=== PATIENT | male | born 1940 | race Caucasian/White ===

== ENCOUNTER → 2016-06-01 | Outpatient (CLI) | payer MEDICARE, OTHER ==
[~2016-06-01] MED LIST: /WARF5TA OR; ACET65TA OR; ARIC10TA PO; ASPI325T OR; ASPI81TA11 PO; DICL250C70 PO; LISI10TA4 OR; LISI2.5T3 OR; METO-346 PO; NAME28CA PO; PERC5TAB8 OR; TOPR25TA OR; TYLE167L PO; VICO5TAB16 PO; ZOCOR PO; metoprolol OR; namenda OR
--- NOTE | 2016-06-01 15:36 | REP ---
Shunt series: Three views. Comparison radiographs are from January 14, 2015. History: Presence of cerebrospinal fluid drainage device. Findings: Three views of the left frontal calvarium are obtained. These demonstrate a left-sided ventriculoperitoneal shunt apparatus in place. The control dial for the device is visible on lateral radiographs. No discontinuity is seen in the visualized shunt tubing. Signed by Shreyas Guerrero MD 06/01/2016 07:18 P
== END ==
LOC: M RAD 14:37
PROVIDERS: ATTEND Neurological Surgery
DX: Z98.2 Presence of cerebrospinal fluid drainage device (principal)

== ENCOUNTER → 2016-06-16 | Outpatient (CLI) | payer MEDICARE, OTHER ==
--- NOTE | 2016-06-16 10:05 | REP ---
MR BRAIN WITHOUT CONTRAST: HISTORY: Normal pressure hydrocephalus. Areas of increased signal intensity on T2-weighted images are present in the periventricular and subcortical white matter. This represents small vessel ischemic disease. A small focus of increased signal intensity on T2-weighted images is present in the left frontal lobe. This represents encephalomalacia. There is no intraparenchymal hemorrhage, infarct, mass, or midline shift. The ventricular system and cortical sulci are dilated consistent with moderate volume loss. There is no extracerebral collection. A shunt is present in the anterior horn of the right lateral ventricle. The sinuses are clear. IMPRESSION: 1. Small vessel ischemic disease. 2. Moderate volume loss. Signed by Jose Escobar MD 06/16/2016 10:07 A
== END ==
LOC: M RAD 07:16
PROVIDERS: ATTEND Neurological Surgery
DX: G91.2 (Idiopathic) normal pressure hydrocephalus (principal); I73.9 Peripheral vascular disease, unspecified

== ENCOUNTER → 2016-07-06 | Outpatient (CLI) | payer MEDICARE, OTHER ==
--- NOTE | 2016-07-06 17:58 | REP ---
SHUNT SERIES, FIVE VIEWS: HISTORY: [employer] shunt [employer] shunt is present with its tip in the region of the anterior horns of the lateral ventricles. The distal shunt is present in the mid anterior pelvis. There is no shunt discontinuity. IMPRESSION: There is no shunt discontinuity. Signed by Jose Escobar MD 07/07/2016 08:52 A
== END ==
LOC: M RAD 15:49
PROVIDERS: ATTEND Neurological Surgery
DX: Z98.2 Presence of cerebrospinal fluid drainage device (principal)

== ENCOUNTER → 2016-07-09 | Outpatient (CLI) | payer MEDICARE, OTHER ==
--- NOTE | 2016-07-09 09:24 | REP ---
CT HEAD WITHOUT CONTRAST: HISTORY: CSF drainage. COMPARISON: MR 06/16/2016 Areas of decreased attenuation are present in the periventricular white matter. This represents small vessel ischemic disease. There is no intraparenchymal hemorrhage, mass or midline shift. There is dilatation of the ventricular system unchanged compared to the previous study. The cortical sulci are dilated consistent with moderate volume loss. There is no extracerebral collection. A shunt is present in the anterior horn of the right lateral ventricle. The visualized sinuses are clear. IMPRESSION: 1. Small vessel ischemic disease. 2. Moderate volume loss. 3. A shunt is present in the right lateral ventricle. There is no change in size of the ventricles compared to the previous study. Signed by Jose Escobar MD 07/09/2016 11:03 A
== END ==
LOC: M RAD 07:59
PROVIDERS: ATTEND Neurological Surgery
DX: Z98.2 Presence of cerebrospinal fluid drainage device (principal)

== ENCOUNTER → 2016-07-28 | Outpatient (CLI) | payer MEDICARE, OTHER ==
--- NOTE | 2016-07-28 18:46 | REP ---
Shunt series: Limited study single view: History: Idiopathic normal-pressure hydrocephalus. Findings: Lateral view of the ventriculostomy catheter and associated shunt tubing demonstrates the shunt control device. This appears to be unchanged in position from 07/06/2016. No discontinuity is seen. Signed by Shreyas Guerrero MD 07/29/2016 08:06 A
== END ==
LOC: M RAD 15:10
PROVIDERS: ATTEND Neurological Surgery
DX: G91.2 (Idiopathic) normal pressure hydrocephalus (principal)

== ENCOUNTER → 2016-08-26 | Outpatient (CLI) | payer MEDICARE, OTHER ==
--- NOTE | 2016-08-26 12:15 | REP ---
CT HEAD WITHOUT CONTRAST: HISTORY: Normal pressure hydrocephalus. COMPARISON: 07/09/2016. Areas of decreased attenuation are present in the periventricular white matter. This represents small vessel ischemic disease. There is no intraparenchymal hemorrhage, mass or midline shift. There is dilatation of the ventricular system unchanged compared to the previous study. A shunt is present in the anterior horn of the right lateral ventricle. The cortical sulci are dilated consistent with moderate volume loss. There is no extracerebral collection. The visualized sinuses are clear. IMPRESSION: 1. Small vessel ischemic disease. 2. Moderate volume loss. 3. A shunt is present in the right lateral ventricle. There is no change in size of the ventricles compared to the previous study. Signed by Jose Escobar MD 08/26/2016 12:27 P
== END ==
LOC: M RAD 11:16
PROVIDERS: ATTEND Neurological Surgery
DX: G91.2 (Idiopathic) normal pressure hydrocephalus (principal); I73.9 Peripheral vascular disease, unspecified; G93.9 Disorder of brain, unspecified; Z98.2 Presence of cerebrospinal fluid drainage device

== ENCOUNTER → 2017-01-12 | Outpatient (CLI) | payer MEDICARE, OTHER ==
[~2017-01-12] MED LIST changes: -ARIC10TA PO; +ARIC1TAB2 PO; +ASPI-101 PO; -ASPI81TA11 PO
--- NOTE | 2017-01-12 17:49 | REP ---
[employer] SHUNT SERIES: Comparison made with prior study of 07/28/2016. Lateral view of the skull demonstrates [employer]INICIAN shunt at the cephalic end unchanged in appearance compared to the prior exam. The cephalic tip is just to the right of midline. This is seen on the AP view of the skull. AP view of the chest demonstrates the catheter extending inferiorly across the left hemithorax, again unchanged since prior study. Two views of the abdomen and pelvis demonstrate the catheter entering the left upper quadrant of the abdomen extending into the left lower quadrant and then coursing into the right midabdomen. No kinking or discontinuity is seen. Signed by Grover Velasquez MD 01/13/2017 04:40 P
== END ==
LOC: M RAD 14:30
PROVIDERS: ATTEND Neurological Surgery
DX: T85.09XA Other mechanical complication of ventricular intracranial (communicating) shunt, initial encounter (principal); Y83.1 Surgical operation with implant of artificial internal device as the cause of abnormal reaction of the patient, or of later complication, without mention of misadventure at the time of the procedure

== ENCOUNTER → 2017-01-27 | Outpatient (CLI) | payer MEDICARE, OTHER | LOC: M RAD 11:32 | PROVIDERS: ATTEND Neurological Surgery | DX: Z98.2 Presence of cerebrospinal fluid drainage device (principal) ==

== ENCOUNTER → 2017-02-18 | Outpatient (CLI) | payer MEDICARE, OTHER ==
--- NOTE | 2017-02-18 13:35 | REP ---
Clinical: Evaluate exact position of the shunt. Technique: Axial noncontrast images of the abdomen. Findings: A ventriculoperitoneal shunt is identified in the anterior subcutaneous tissues overlying the left chest and abdominal wall piercing the peritoneal cavity above the level of the umbilicus at the L2-3 level. The catheter coils within the abdomen and is relatively normal in its appearance. Liver, spleen, pancreas, bilateral adrenal glands and left kidney are relatively normal. No right kidney identified. Significant atherosclerotic changes of the aorta and branch vessels including renovascular calcifications are identified. The enteric system demonstrates diffuse diverticulosis without acute diverticulitis and no evidence for bowel obstruction or acute inflammatory process. There is a moderate supraumbilical midline ventral hernia containing fat and nondilated small bowel with a peritoneal defect of approximately 5 cm diameter. No ascites, free air, or adenopathy is appreciated in the visualized abdomen. Lung bases demonstrate chronic interstitial changes. Impression: 1. Ventriculoperitoneal shunt appears to be within normal limits. 2. Moderate midline supraumbilical ventral hernia containing fat and nondilated small bowel. 3. Atherosclerotic changes to the aorta and vasculature. 4. No right kidney identified. Signed by Stephen Elkins MD 02/18/2017 01:27 P
== END ==
LOC: M RAD 13:04
PROVIDERS: ATTEND Neurological Surgery
DX: Z01.89 Encounter for other specified special examinations (principal)

== ENCOUNTER → 2017-04-01 | Outpatient (REF) | payer MEDICARE, OTHER ==
[2017-04-02 11:26] LABS: BASO # 0.1 10^3/uL (0.0-0.2); EOS # 0.2 10^3/uL (0.0-0.50); EOS % 2.6 % (0.0-3.0); HEMOGLOBIN 12.3 g/dl (14.0-18.0); IMMATURE GRANULOCYTE # 0.1 10^3/uL (0-0); IMMATURE GRANULOCYTE % 1.2 % (0-0); LYMPH # 1.2 10^3/uL (1.5-4.5); LYMPH % 20.5 % (24.0-44.0); MEAN CORPUSCULAR HEMOGLOBIN 28.6 pg (27.0-33.0); MEAN CORPUSCULAR HGB CONC 31.5 g/dl (32.0-36.5); MEAN CORPUSCULAR VOLUME 90.7 fl (80.0-96.0); MONO # 0.7 10^3/uL (0.0-0.8); MONO % 11.1 % (0.0-5.0); NEUTROPHILS # 3.7 10^3/uL (1.8-7.7); NEUTROPHILS % 63.6 % (36.0-66.0); PLATELET COUNT, AUTOMATED 308 10^3/uL (150-450); RED CELL DISTRIBUTION WIDTH 13.6 % (11.5-14.5); WHITE BLOOD COUNT 5.9 10^3/uL (4.0-10.0)
[2017-04-02 11:37] LABS: ALBUMIN 3.8 GM/DL (3.2-5.2); ALBUMIN/GLOBULIN RATIO 1.03 (1.00-1.93); ALKALINE PHOSPHATASE 97 U/L (45-117); ALT/SGPT 16 U/L (12-78); ANION GAP 5 MEQ/L (8-16); AST/SGOT 15 U/L (7-37); BILIRUBIN,TOTAL 0.4 MG/DL (0.2-1.0); BLOOD UREA NITROGEN 19 MG/DL (7-18); CALCIUM LEVEL 8.7 MG/DL (8.8-10.2); CARBON DIOXIDE LEVEL 30 MEQ/L (21-32); CHLORIDE LEVEL 107 MEQ/L (98-107); CREATININE FOR GFR 1.29 MG/DL (0.70-1.30); GLOMERULAR FILTRATION RATE 57.3 (>42); GLUCOSE, FASTING 117 MG/DL (83-110); POTASSIUM SERUM 4.8 MEQ/L (3.5-5.1); SODIUM LEVEL 142 MEQ/L (136-145); TOTAL PROTEIN 7.5 GM/DL (6.4-8.2)
== END ==
LOC: M SFHCCLAY 14:00
DX: I10 Essential (primary) hypertension (principal)
CPT/HCPCS: 80053

== ENCOUNTER → 2017-04-05 | Outpatient (CLI) | payer MEDICARE, OTHER | LOC: M PLARAD 08:26 | DX: G30.9 Alzheimer's disease, unspecified (principal) ==

== ENCOUNTER → 2017-08-19 | Outpatient (REF) | payer MEDICARE, OTHER | LOC: M LAB REF 14:27 | DX: C44.319 Basal cell carcinoma of skin of other parts of face (principal) | CPT/HCPCS: 88305 ==

== ENCOUNTER → 2017-11-03 | Outpatient (CLI) | payer MEDICARE, OTHER | LOC: M RAD 10:06 | DX: I67.82 Cerebral ischemia (principal); I62.02 Nontraumatic subacute subdural hemorrhage; Z98.2 Presence of cerebrospinal fluid drainage device | CPT/HCPCS: 75809 ==

== ENCOUNTER 2017-11-30 18:00 | Inpatient (IN) | payer MEDICARE, OTHER ==
[2017-11-30 18:51] LABS: BEDSIDE GLUCOSE 100 MG/DL (83-110)
[2017-11-30 19:08] LABS: BASO % 0.3 % (0.0-1.0); EOS # 0.2 10^3/uL (0.0-0.50); EOS % 1.9 % (0.0-3.0); HEMATOCRIT 36.7 % (42.0-52.0); HEMOGLOBIN 11.6 g/dl (13.5-17.5); IMMATURE GRANULOCYTE % 0.4 % (0-3.0); LYMPH # 1.1 10^3/uL (1.5-4.5); LYMPH % 10.4 % (24.0-44.0); MEAN CORPUSCULAR HEMOGLOBIN 27.4 pg (27.0-33.0); MEAN CORPUSCULAR HGB CONC 31.6 g/dl (32.0-36.5); MEAN CORPUSCULAR VOLUME 86.6 fl (80.0-96.0); MONO % 9.6 % (0.0-5.0); NEUTROPHILS % 77.4 % (36.0-66.0); PLATELET COUNT, AUTOMATED 272 10^3/uL (150-450); RED BLOOD COUNT 4.24 10^6/uL (4.30-6.10); RED CELL DISTRIBUTION WIDTH 14.1 % (11.5-14.5); WHITE BLOOD COUNT 10.3 10^3/uL (4.0-10.0)
[2017-11-30 19:40] LABS: AMMONIA 31 uMOL/L (<32)
[2017-11-30 19:48] LABS: ALBUMIN 3.4 GM/DL (3.2-5.2); ALBUMIN/GLOBULIN RATIO 0.85 (1.00-1.93); ALKALINE PHOSPHATASE 107 U/L (45-117); ALT/SGPT 11 U/L (12-78); ANION GAP 6 MEQ/L (8-16); AST/SGOT 17 U/L (7-37); BILIRUBIN,DIRECT 0.1 MG/DL (0.0-0.2); BILIRUBIN,TOTAL 0.4 MG/DL (0.2-1.0); BLOOD UREA NITROGEN 15 MG/DL (7-18); CALCIUM LEVEL 8.6 MG/DL (8.8-10.2); CARBON DIOXIDE LEVEL 26 MEQ/L (21-32); CHLORIDE LEVEL 108 MEQ/L (98-107); CPK CREATINE PHOSPHOKINASE 80 U/L (39-308); CREATININE FOR GFR 1.13 MG/DL (0.70-1.30); GLOMERULAR FILTRATION RATE > 60.0 (>42); GLUCOSE, FASTING 98 MG/DL (70-100); MB/CK RELATIVE INDEX 1.38 (< OR =4); POTASSIUM SERUM 4.2 MEQ/L (3.5-5.1); SODIUM LEVEL 140 MEQ/L (136-145); TOTAL PROTEIN 7.4 GM/DL (6.4-8.2); TROPONIN I < 0.02 NG/ML (< 0.10)
[2017-11-30 21:24] LABS: KETONE, URINE AUTO RFX NEGATIVE (NEGATIVE); NITRITE, URINE AUTO RFX NEGATIVE (NEGATIVE); RBC, URINE AUTO RFX 13 /HPF (0-3); SPECIFIC GRAVITY UR AUTO RFX 1.017 (1.002-1.035); SQUAM EPITHELIAL CELL UR AURFX 2 /HPF (0-6)
[2017-11-30 21:26] LABS: LEUKOCYTE ESTERASE UR AUTO RFX 3+ (NEGATIVE); WBC, URINE AUTO RFX 103 /HPF (0-3)
[2017-11-30] MEDS: CIPROFLOXACIN 400 MG in APPROPRIATE DILUENT 1 EA IV (21:30)
[2017-11-30] MEDS ORDERED: ACETAMINOPHEN TAB 650MG DOSE (2X325MG) PO (23:00)
[2017-12-01] MEDS: cefTRIAXone SOD 1 GM in D5W MINI-BAG PLUS 50 ML IV (00:36)
[2017-12-01] MEDS: SIMVASTATIN 40 MG TAB PO ×2 (00:37→20:25)
[2017-12-01] MEDS: DONEPEZIL 5 MG TAB PO ×2 (00:37→20:25)
[2017-12-01] MEDS: SERTRALINE 100 MG TAB PO ×2 (00:38→20:25)
[2017-12-01 07:02] LABS: HEMOGLOBIN 11.1 g/dl (13.5-17.5); MEAN CORPUSCULAR HEMOGLOBIN 27.1 pg (27.0-33.0); MEAN CORPUSCULAR HGB CONC 31.7 g/dl (32.0-36.5); MEAN CORPUSCULAR VOLUME 85.4 fl (80.0-96.0); PLATELET COUNT, AUTOMATED 269 10^3/uL (150-450); WHITE BLOOD COUNT 8.3 10^3/uL (4.0-10.0)
[2017-12-01 07:21] LABS: ANION GAP 5 MEQ/L (8-16); BLOOD UREA NITROGEN 12 MG/DL (7-18); CALCIUM LEVEL 8.7 MG/DL (8.8-10.2); CARBON DIOXIDE LEVEL 26 MEQ/L (21-32); CHLORIDE LEVEL 108 MEQ/L (98-107); CREATININE FOR GFR 1.17 MG/DL (0.70-1.30); GLOMERULAR FILTRATION RATE > 60.0 (>42); GLUCOSE, FASTING 104 MG/DL (70-100); POTASSIUM SERUM 4.1 MEQ/L (3.5-5.1); SODIUM LEVEL 139 MEQ/L (136-145)
[2017-12-01] MEDS: MEMANTINE 5MG TABLET (NAMENDA) PO ×2 (08:09→20:26)
[2017-12-02] MEDS: cefTRIAXone SOD 1 GM in D5W MINI-BAG PLUS 50 ML IV ×2 (00:34→23:28)
[2017-12-02] MEDS: NYSTATIN 100,000 UNITS/GM TOPICAL PWD 15 GM TOP ×3 (00:34→21:45)
[2017-12-02 06:33] LABS: HEMATOCRIT 36.7 % (42.0-52.0); HEMOGLOBIN 11.5 g/dl (13.5-17.5); MEAN CORPUSCULAR HEMOGLOBIN 27.3 pg (27.0-33.0); MEAN CORPUSCULAR HGB CONC 31.3 g/dl (32.0-36.5); PLATELET COUNT, AUTOMATED 266 10^3/uL (150-450); RED BLOOD COUNT 4.22 10^6/uL (4.30-6.10); RED CELL DISTRIBUTION WIDTH 14.1 % (11.5-14.5); WHITE BLOOD COUNT 9.7 10^3/uL (4.0-10.0)
[2017-12-02 07:00] LABS: ANION GAP 6 MEQ/L (8-16); BLOOD UREA NITROGEN 15 MG/DL (7-18); CARBON DIOXIDE LEVEL 27 MEQ/L (21-32); CHLORIDE LEVEL 108 MEQ/L (98-107); CREATININE FOR GFR 1.27 MG/DL (0.70-1.30); GLOMERULAR FILTRATION RATE 58.2 (>42); GLUCOSE, FASTING 104 MG/DL (70-100); POTASSIUM SERUM 4.4 MEQ/L (3.5-5.1); SODIUM LEVEL 141 MEQ/L (136-145)
[2017-12-02] MEDS: MEMANTINE 5MG TABLET (NAMENDA) PO ×2 (07:45→21:44)
[2017-12-02] MEDS ORDERED: MIRALAX *UNIT DOSE* 17GM PACKET PO (10:00)
[2017-12-02] MEDS: SERTRALINE 100 MG TAB PO (21:44)
[2017-12-02] MEDS: DONEPEZIL 5 MG TAB PO (21:44)
[2017-12-02] MEDS: SIMVASTATIN 40 MG TAB PO (21:44)
[2017-12-03 06:56] LABS: HEMATOCRIT 36.3 % (42.0-52.0); HEMOGLOBIN 11.3 g/dl (13.5-17.5); MEAN CORPUSCULAR HEMOGLOBIN 26.7 pg (27.0-33.0); MEAN CORPUSCULAR HGB CONC 31.1 g/dl (32.0-36.5); MEAN CORPUSCULAR VOLUME 85.8 fl (80.0-96.0); PLATELET COUNT, AUTOMATED 260 10^3/uL (150-450); RED BLOOD COUNT 4.23 10^6/uL (4.30-6.10); RED CELL DISTRIBUTION WIDTH 14.4 % (11.5-14.5); WHITE BLOOD COUNT 9.7 10^3/uL (4.0-10.0)
[2017-12-03 07:19] LABS: ANION GAP 5 MEQ/L (8-16); BLOOD UREA NITROGEN 17 MG/DL (7-18); CALCIUM LEVEL 8.8 MG/DL (8.8-10.2); CARBON DIOXIDE LEVEL 30 MEQ/L (21-32); CHLORIDE LEVEL 108 MEQ/L (98-107); CREATININE FOR GFR 1.26 MG/DL (0.70-1.30); GLOMERULAR FILTRATION RATE 58.8 (>42); GLUCOSE, FASTING 110 MG/DL (70-100); POTASSIUM SERUM 4.2 MEQ/L (3.5-5.1); SODIUM LEVEL 143 MEQ/L (136-145)
[2017-12-03] MEDS: MEMANTINE 5MG TABLET (NAMENDA) PO (08:40)
[2017-12-03] MEDS: NYSTATIN 100,000 UNITS/GM TOPICAL PWD 15 GM TOP (08:40)
[2017-12-07 13:44] LABS: ETHYL ALCOHOL (ETHANOL) < 0.003 % (0.000-0.010)
== END 2017-12-03 20:21 | disposition home health service (06) | DRG 71 ==
LOC: M MSPAV 12-01 01:33 → M ED 18:00 → M ED INP 22:47
PROVIDERS: Internal Medicine
DX: G93.41 Metabolic encephalopathy (principal); N39.0 Urinary tract infection, site not specified; G91.2 (Idiopathic) normal pressure hydrocephalus; F02.80 Dementia in other diseases classified elsewhere, unspecified severity, without behavioral disturbance, psychotic disturbance, mood disturbance, and anxiety; R32 Unspecified urinary incontinence; I25.10 Atherosclerotic heart disease of native coronary artery without angina pectoris; E78.5 Hyperlipidemia, unspecified; G30.9 Alzheimer's disease, unspecified; Z85.46 Personal history of malignant neoplasm of prostate; Z96.653 Presence of artificial knee joint, bilateral; Z98.2 Presence of cerebrospinal fluid drainage device; Z95.5 Presence of coronary angioplasty implant and graft; Z79.899 Other long term (current) drug therapy; Z95.2 Presence of prosthetic heart valve